=== PATIENT | male | born 1965 | race Two or more races ===

== ENCOUNTER 2022-07-22 12:18 | Emergency (ER) | payer BC ==
[2022-07-22] MEDS ORDERED: Sodium Chloride 0.9% 1,000 ML IV ONE (12:32)
[2022-07-22 13:10] LABS: BLOOD UREA NITROGEN,BUN 16 mg/dL (7.0-18.0); CARBON DIOXIDE,CO2 24.8 mmol/L (21.0-32.0); CHLORIDE,CL 107 mmol/L (98-107); GLUCOSE RANDOM 104 mg/dL (74-106); SODIUM,NA 140 mmol/L (136-148)
[2022-07-22 13:13] LABS: ESTIMATED GFR 99 mL/min (>60)
[2022-07-22 13:23] LABS: CORONAVIRUS COVID-19 NAA NEGATIVE (NEGATIVE); INFLUENZA A NAA NEGATIVE (NEGATIVE); INFLUENZA B NAA NEGATIVE (NEGATIVE); RESPIRATORY SYNCYTIAL VIR NAA NEGATIVE (NEGATIVE)
== END 2022-07-22 14:23 | disposition home or self-care (01) ==
LOC: MW.ED 12:18
DX: R55 Syncope and collapse (principal); J01.00 Acute maxillary sinusitis, unspecified; Z20.822 Contact with and (suspected) exposure to COVID-19; Y92.69 Other specified industrial and construction area as the place of occurrence of the external cause
CPT/HCPCS: 0241U; 36415; 70450; 71045; 80053; 81003; 84484; 85025; 93005; 96360; 99284; J7030; 93010; 99283